=== PATIENT | female | born 1985 | race Caucasian/White ===

== ENCOUNTER 2016-11-22 14:12 | Emergency (ER) | payer OTHER ==
[~2016-11-22] VITALS: Ht 162.6 cm; Wt 99.8 kg
[2016-11-22 15:06] LABS: ABSOLUTE BASOPHIL COUNT 0 /CUMM (0.0-0.2); ABSOLUTE EOSINOPHIL COUNT 0 /CUMM (0.0-0.7); ABSOLUTE LYMPH COUNT 1.4 /CUMM (1.2-3.4); ABSOLUTE MONOCYTE COUNT 0.5 /CUMM (0.10-0.60); BASOPHIL % 0.6 % (0.0-2.0); EOSINOPHIL % 0.7 % (0-5); GRANULOCYTE % 71.6 % (42.2-75.2); HEMATOCRIT 38.5 % (37-47); MEAN CORPUSCULAR HGB 26.4 PG (27.0-31.0); MEAN CORPUSCULAR HGB CONC 32.7 G/DL (33.0-37.0); MEAN CORPUSCULAR VOLUME 80.8 FL (81.0-99.0); MEAN PLATELET VOLUME 8.2 FL (7.4-10.4); PLATELET COUNT 302 /CUMM (130-400); RBC DISTRIBUTION WIDTH 14.6 % (11.5-14.5); RED BLOOD CELL CT 4.77 /CUMM (4.20-5.40)
--- NOTE | 2016-11-22 16:45 | ED HEADACHE COMPLAINT ---
History of Present Illness General Chief Complaint: Headache Stated Complaint: MESA 3 OR 4 DAYS Source: patient, family, old records Exam Limitations: no limitations Vital Signs & Intake/Output Vital Signs & Intake/Output Vital Signs Date Time Temp Pulse Resp B/P Pulse O2 O2 Flow FiO2 Ox Delivery Rate 11/22 1812 97.0 70 20 120/80 96 Room Air 11/22 1457 96.8 73 16 127/87 95 Room Air ED Intake and Output 11/23 0000 11/22 1200 Intake Total 50 Output Total Balance 50 Intake, IV 50 Patient 220 lb Weight Allergies Coded Allergies: hydrocodone (HIVES, ITCHY 11/22/16) oxycodone (ITCHY, HIVES 11/22/16) Reconcile Medications Acyclovir 400 MG TABLET 1 TAB PO BID ANTIVIRAL (Reported) Albuterol Sulfate (Ventolin Hfa) 90 MCG HFA.AER.AD 2 PUF INH Q4-6 PRN PRN ASTHMA (Reported) Amitriptyline HCl 10 MG TABLET 1 TAB PO QPM HEADACHES (Reported) Ergocalciferol (Vitamin D2) (Vitamin D2) 50,000 UNIT CAPSULE 1 CAP PO QTUES SUPPLEMENT (Reported) Folic Acid 1 MG TABLET 1 TAB PO DAILY SUPPLEMENT (Reported) Hydroxychloroquine Sulfate 200 MG TABLET 1 TAB PO BID RA (Reported) Meloxicam 15 MG TABLET 1 TAB PO DAILY PAIN/INFLAMMATION (Reported) Methotrexate 2.5 MG TABLET 8 TAB PO QTUES RA (Reported) Methylprednisolone. (Medrol) 4 MG TAB.DS.PK 1 DP PO AD HEADACHE Metoclopramide HCl (Reglan) 10 MG TABLET 1 TAB PO Q6-8 PRN headache or nausea Sumatriptan Succinate (Imitrex) 50 MG TABLET 1 TAB PO AD PRN HEADACHES ( Reported) Tramadol HCl 50 MG TABLET 1 TAB PO TID PRN PAIN (Reported) Triage Note: PT STATES SHE HAS BEEN HAVING MESA FOR THE PAST 3 TO 4 MONTHS. PT REPORTS TODAY SHE IS HAVING IT FOR THE PAST FEW DAYS. PT WENT TO NEUOROLOGY AND WAS TOLD SHE IS NOT HAVING A MIRGRAIN. PT STATES SHE WAS PRESCRIBED MEDS BUT IT WORKS FOR A FEW DAYS AND THEN STOPS. Triage Nurses Notes Reviewed? yes : No Patient currently breastfeeds: No HPI: Patient is a 31-year-old female presents complaining of headache. Patient reports she has had headaches for the past 3-4 months. Patient has been seen by her primary care provider and by neurologist Dr. Mosqueda. Patient has been placed on a triptan medication and amitriptyline that provide mild temporary improvement. Over the past 2-3 days no improvement with patient's amitriptyline. Patient reports that she was diagnosed by the neurologist with a tension headache after being examined. Patient reports she has not had neuro imaging previously. Patient's mother is concerned due to the patient's grandmother dying from a brain bleed. Headache is a diffuse throbbing pain currently out of 10, no exacerbating or alleviating factors. Patient denies photophobia, nausea, vomiting, blurred vision, numbness, weakness, recent trauma. (DAVID SONI) Past History Travel History Traveled to [place] past 21 day No Medical History Any Pertinent Medical History? see below for history Neurological: MESA Musculoskeletal: rheumatoid arthritis Surgical History Surgical History: non-contributory Psychosocial History What is your primary language Swedish Tobacco Use: Never used ETOH Use: denies use Illicit Drug Use: denies illicit drug use Family History Hx Contributory? No (DAVID SONI) Review of Systems Review of Systems Constitutional: Denies: chills, fever. Eyes: Denies: blurred vision. Ears, Nose, Throat, Mouth: Reports: no symptoms. Respiratory: Denies: cough, short of breath. Cardiovascular: Denies: chest pain. Gastrointestinal/Abdominal: Denies: abdominal pain, nausea, vomiting. Musculoskeletal: Denies: back pain, neck pain. Skin: Denies: rash. Neurological/Psychological: Denies: headache, numbness. Hematologic/Endocrine: Denies: bruising, bleeding. Endocrine: Reports: no symptoms. Immunologic/Allergic: Denies: splenectomy, lymphadenopathy. (DAVID SONI) Physical Exam Physical Exam General Appearance: well developed/nourished, alert, awake Head: atraumatic, normal appearance, nontender Eyes: Bilateral: normal appearance, PERRL, EOMI. Ears, Nose, Throat: normal pharynx, normal ENT inspection, hearing grossly normal Neck: normal inspection, supple, full range of motion, no midline tenderness, no paraspinal tenderness Respiratory: normal breath sounds, chest non-tender, no respiratory distress, lungs clear Cardiovascular: regular rate/rhythm Gastrointestinal: soft, non-tender Back: normal inspection, normal range of motion, no vertebral tenderness Extremities: normal inspection, normal capillary refill, normal range of motion, no edema Psychiatric: awake, alert, oriented x 3 Cranial Nerves: normal hearing, normal speech, PERRL Coordination/Gait: normal gait Motor/Sensory: no motor/sensory deficits Skin: intact, normal color, warm/dry Lymphatic: no anterior cervical lakshmi Core Measures Severe Sepsis Present: No Septic Shock Present: No (SHOLA CORNELL,DAVID) Progress Differential Diagnosis: carotid dissection, cluster MESA, IC mass/tumor, intracranial Hem., migraine MESA, musculoskeletal pain, tension MESA, viral cephalgia Plan of Care: Orders Procedure Date/time Status Add-on Test (ER Only) 11/22 1653 Active HUMAN BETA HCG SCREEN 11/22 1501 Complete COMPREHENSIVE METABOLIC PANEL 11/22 1415 Complete CBC WITHOUT DIFFERENTIAL 11/22 1415 Complete Laboratory Tests 11/22/16 1501: Anion Gap 8, Estimated GFR > 60, BUN/Creatinine Ratio 21.7, Glucose 79, Calcium 9.4, Total Bilirubin 0.6, AST 19, ALT 18, Alkaline Phosphatase 68, Total Protein 7.2, Albumin 4.0, Globulin 3.2, Albumin/Globulin Ratio 1.3, Total Beta HCG NEGATIVE, CBC w Diff NO MAN DIFF REQ, RBC 4.77, MCV 80.8 L, MCH 26.4 L, RDW 14.6 H, MPV 8.2, Gran % 71.6, Lymphocytes % 20.6, Monocytes % 6.5, Eosinophils % 0.7, Basophils % 0.6, Absolute Granulocytes 5.0, Absolute Lymphocytes 1.4, Absolute Monocytes 0.5, Absolute Eosinophils 0, Absolute Basophils 0, PUBS MCHC 32.7 L 1810: Patient reports feeling significantly improved after Toradol and Reglan. Results of labs and CT scan discussed with patient. Patient has an appointment with her neurologist within the next 2 weeks. No signs of infectious etiology currently, no acute neurologic abnormalities. Patient appears stable for discharge. (DAVID SONI) Diagnostic Imaging: Viewed by Me: CT Scan. Discussed w/RAD: CT Scan. Radiology Impression: PATIENT: LON CHISHOLM PRESENT AGE : 31 PATIENT ACCOUNT NO: [id number] : 86 LOCATION: [facility] ORDERING PHYSICIAN: DAVID CORNELL SERVICE DATE: 11/22/16 EXAM TYPE: CAT - CT HEAD WO IV CONTRAST EXAMINATION: CT HEAD WITHOUT CONTRAST CLINICAL INFORMATION: Tension headache. Severe headache. COMPARISON: None. TECHNIQUE: Contiguous axial imaging was performed from the skull base to vertex without intravenous administration of contrast. DLP: 600.71 mGy-cm. FINDINGS: There is no evidence of acute intracranial hemorrhage or territorial infarction. No abnormal mass effect or midline shift is seen. Bradley to white matter differentiation is well preserved. No extra-axial fluid collections are identified. The ventricles are normal in size. There is no abnormal attenuation within the brain parenchyma. The osseous structures and soft tissues are normal. The mastoid air cells and visualized portions of the paranasal sinuses are well aerated. IMPRESSION: No acute intracranial pathology. DICTATED BY: HARITHA BRANDON MD DATE/TIME DICTATED:11/22/161745 STOREKEEPER ENGINEERING:ROSELYN DATE/TIME TRANSCRIBED:11/22/161745 CONFIDENTIAL, DO NOT COPY WITHOUT APPROPRIATE AUTHORIZATION. <Electronically signed in Other Vendor System> SIGNED BY: HARITHA BRANDON MD 11/22/161756 (DAVID SONI) Departure Departure Time of Disposition: 1810 Disposition: HOME OR SELF CARE Condition: Stable Clinical Impression Primary Impression: Tension headache Referrals: TRISHA LEARY,BEBETO RIVAS MD,AMY (PCP/Family) Additional Instructions: Follow-up with your neurologist later this month as scheduled. Return to the emergency department if numbness, weakness, pain uncontrollable, or worsening of symptoms. Departure Forms: Customer Survey General Discharge Information Prescriptions: Current Visit Scripts Metoclopramide HCl (Reglan) 1 TAB PO Q6-8 PRN headache or nausea #12 TAB Methylprednisolone. (Medrol) 1 DP PO AD #1 DP (DAVID SONI) PA/ASSEMBLY MACHINE OFFBEARER Co-Sign Statement Statement: ED Attending supervision documentation- [] I saw and evaluated the patient. I have also reviewed all the pertinent lab results and diagnostic results. I agree with the findings and the plan of care as documented in the PA's/ASSEMBLY MACHINE OFFBEARER's documentation. [X] I have reviewed the ED Record and agree with the PA's/ASSEMBLY MACHINE OFFBEARER's documentation. [] Additions or exceptions (if any) to the PAs/ASSEMBLY MACHINE OFFBEARER's note and plan are summarized below: [] (CHINO LEARY,ANDREA)
[2016-11-22] MEDS ORDERED: TRAMADOL HCL50 M1 PO (17:03)
[2016-11-22] MEDS ORDERED: MELOXICAM15 M1 PO (17:04)
[2016-11-22] MEDS ORDERED: HYDROXYCHLOROQ200 M2 PO (17:05)
[2016-11-22] MEDS ORDERED: METHOTREXATE2.5 M2 PO (17:05)
[2016-11-22] MEDS ORDERED: VITAMIN D250000 UNIT PO (17:05)
[2016-11-22] MEDS ORDERED: FOLIC ACID1 M1 PO (17:05)
[2016-11-22] MEDS ORDERED: IMITREX50 M1 PO (17:06)
[2016-11-22] MEDS ORDERED: ACYCLOVIR400 M1 PO (17:06)
[2016-11-22] MEDS ORDERED: AMITRIPTYLINE H10 M2 PO (17:06)
[2016-11-22] MEDS ORDERED: VENTOLIN HFA18 GM INH (17:06)
--- NOTE | 2016-11-22 17:57 | CT SCAN REPORT ---
EXAMINATION: CT HEAD WITHOUT CONTRAST CLINICAL INFORMATION: Tension headache. Severe headache. COMPARISON: None. TECHNIQUE: Contiguous axial imaging was performed from the skull base to vertex without intravenous administration of contrast. DLP: 600.71 mGy-cm. FINDINGS: There is no evidence of acute intracranial hemorrhage or territorial infarction. No abnormal mass effect or midline shift is seen. Bradley to white matter differentiation is well preserved. No extra-axial fluid collections are identified. The ventricles are normal in size. There is no abnormal attenuation within the brain parenchyma. The osseous structures and soft tissues are normal. The mastoid air cells and visualized portions of the paranasal sinuses are well aerated. IMPRESSION: No acute intracranial pathology.
[2016-11-22 18:12] VITALS: BP 120/80
[2016-11-22] MEDS ORDERED: MEDROL4 M2 PO (18:13)
[2016-11-22] MEDS ORDERED: REGLAN10 M1 PO (18:13)
== END 2016-11-22 18:42 ==
LOC: ERH 14:12
PROVIDERS: Emergency Medicine
DX: G44.209 Tension-type headache, unspecified, not intractable (principal)
CPT/HCPCS: 96374; 96375; J1885; J2765